=== PATIENT | female | born 1950 | race Caucasian/White ===

== ENCOUNTER 2024-09-10 17:19 | Emergency (ER) | payer MEDICARE, OTHER ==
[2024-09-10] MEDS: Ketorolac 30 MG/ML SDV IM ONE (18:32)
== END 2024-09-10 21:09 | disposition home or self-care (01) ==
LOC: JP.ED 17:19
DX: S42.222A 2-part displaced fracture of surgical neck of left humerus, initial encounter for closed fracture (principal); Z79.899 Other long term (current) drug therapy; W18.11XA Fall from or off toilet without subsequent striking against object, initial encounter
CPT/HCPCS: 73030; 96372; 99283; J1885

== ENCOUNTER 2024-09-12 08:37 | Inpatient (IN) | payer MEDICARE, OTHER ==
[2024-09-12] MEDS: Nozin Nasal Sanitizer NASBOTH ONE (09:49)
[2024-09-12] MEDS: Lactated Ringers 1,000 ML IV SCH (10:04)
[2024-09-12 10:08] LABS: PLATELET COUNT,PLT 253.0 K/uL (130-375); RED BLOOD CELL COUNT 3.2 M/uL (3.77-5.24); WHITE BLOOD CELL COUNT,WBC 12.9 K/uL (3.2-11.0)
[2024-09-12] MEDS ORDERED: Succinylcholine 200 MG/10 ML MDV ONE (10:16)
[2024-09-12] MEDS ORDERED: Dexamethasone 4 MG/ML SDV ONE (10:16)
[2024-09-12] MEDS ORDERED: Propofol 200 MG/20 ML SDV ONE (10:16)
[2024-09-12] MEDS ORDERED: Glycopyrrolate 0.2 MG/ML 5 ML MDV ONE (10:16)
[2024-09-12] MEDS ORDERED: fentaNYL 250 MCG/5 ML SDV ONE (10:16)
[2024-09-12] MEDS ORDERED: Ondansetron 4 MG/2 ML SDV ONE (10:16)
[2024-09-12 10:23] LABS: BLOOD UREA NITROGEN,BUN 32.0 mg/dL (7-18); CARBON DIOXIDE,CO2 28.0 mmol/L (21-32); CHLORIDE,CL 99.0 mmol/L (100-108); CREATININE 1.6 mg/dL (0.6-1.0); EST CRCL DRUG DOSING (CG) 24.4 mL/min; ESTIMATED GFR 34.0 mL/min (>60); GLUCOSE RANDOM 146.0 mg/dL (74-106); POTASSIUM,K 3.4 mmol/L (3.6-5.2); SODIUM,NA 136.0 mmol/L (140-148)
[2024-09-12 10:28] LABS: INR 1.1; PTT,PARTIAL THROMBOPLSTIN TIME 26.2 sec (21.8-27.3)
[2024-09-12] MEDS ORDERED: Lactated Ringers 1,000 ML ONE (16:01)
[2024-09-12] MEDS ORDERED: fentaNYL 100 MCG/2 ML SDV ONE ×2 (16:14→16:25)
[2024-09-12] MEDS ORDERED: Ondansetron 4 MG/2 ML SDV IVPUSH PRN (16:39)
[2024-09-12] MEDS: Ketorolac 15 MG/ML SDV IVPUSH PRN (18:05)
[2024-09-12] MEDS: Nozin Nasal Sanitizer NASBOTH SCH (22:09)
[2024-09-13 05:55] LABS: PLATELET COUNT,PLT 249.0 K/uL (130-375); RED BLOOD CELL COUNT 2.85 M/uL (3.77-5.24); WHITE BLOOD CELL COUNT,WBC 14.7 K/uL (3.2-11.0)
== END 2024-09-16 11:10 | DRG 494 ==
LOC: JP.SDS 08:37 → JP.MS 16:39 → JP.SDS 09-13 13:36 → JP.MS 09-15 16:45
PROVIDERS: ADMIT Specialist; ATTEND Specialist
PROC: 0PSD04Z Reposition Left Humeral Head with Internal Fixation Device, Open Approach (ICD-10-PCS; principal; 2024-09-12 13:20)
DX: S42.212A Unspecified displaced fracture of surgical neck of left humerus, initial encounter for closed fracture (principal); M17.0 Bilateral primary osteoarthritis of knee; R29.6 Repeated falls; W19.XXXA Unspecified fall, initial encounter
CPT/HCPCS: 36415; 76000; 80048; 85027; 85610; 85730; 93005; 97110-GO; 97110-GP; 97161-GP; 97165-GO; 97530-GP; A9270-GY; C1713; C1776; J0330; J0665; J0690; J1100; J1596; J1885; J2405; J2704; J2710; J3010; J3490; J7030; J7120